=== PATIENT | female | born 1955 | race Caucasian/White ===

== ENCOUNTER → 2020-03-19 | Day surgery (SDC) | payer BC ==
[~2020-03-19] MED LIST: Ketamine 200 MG/20 ML MDV IV ONE; Ondansetron 4 MG/2 ML SDV IV ONE; Propofol 200 MG/20 ML SDV IV ONE; ePHEDrine 50 MG/ML SDV IV ONE; fentaNYL 100 MCG/2 ML SDV IV ONE
[2020-03-19] MEDS: Lactated Ringers 1,000 ML IV SCH (10:27)
--- NOTE | 2020-03-22 10:00 | OR ---
DATE OF OPERATION: 03/19/2020 PREOPERATIVE DIAGNOSIS: CONSTIPATION. POSTOPERATIVE DIAGNOSIS: CONSTIPATION. SURGEON: Wiliam Suazo MD PROCEDURE: DIAGNOSTIC COLONOSCOPY WITH FORCEPS POLYP REMOVAL X1. ANESTHESIA: MAC. COMPLICATIONS: None. SPECIMEN: Small sessile polyp mid sigmoid colon less than 0.5 cm. FINDINGS: 1. Full-length colonoscopy. 2. Sessile polyp mid sigmoid colon less than 0.5 cm. RECOMMENDATIONS: Followup colonoscopy in 5 years. INDICATIONS: The patient was in to see our [employer]AGE [employer]GER and complained of constipation. She never had a prior colonoscopy. She recommended diagnostic scope. DESCRIPTION OF PROCEDURE: The patient was prepped and draped, placed in the left lateral decubitus position. Lubricated Olympus colonoscope was inserted and easily advanced to the cecum. Direct visualization of the ileocecal valve and appendiceal orifice was accomplished. The bowel prep was adequate. Upon withdrawal of the scope, the cecum, right transverse and descending colons were completely benign. In the mid sigmoid colon, the patient had a small flat sessile polyp approximately 3 to 4 mm removed easily with 2 forceps biopsies in its entirety. Resolution of bleeding from that site was spontaneous. The rest of the sigmoid and rectosigmoid area was completely unremarkable without any other polyps, masses, ulceration, or bleeding sites. No vascular abnormalities or signs of colitis. There were no diverticula. The rectal vault appeared benign. Retroflexion was very difficult due to the shallowness of the vault itself, but upon withdrawal, no gross abnormalities were seen on direct exam. Air was suctioned as best as possible. The scope was removed without complication. NIKIA/MARIE /[id number]
== END ==
LOC: CC.SDS 10:03
PROVIDERS: ATTEND Family Medicine
DX: K63.5 Polyp of colon (principal); K59.00 Constipation, unspecified; E03.9 Hypothyroidism, unspecified; Z88.1 Allergy status to other antibiotic agents; Z79.890 Hormone replacement therapy
CPT/HCPCS: 00812; J2405; J2704; J3010; J7120